=== PATIENT | female | born 1970 | race Caucasian/White ===

== ENCOUNTER 2019-11-28 06:00 | Outpatient (RCR) | payer MEDICARE, MEDICAID, SELFPAY | END 2019-12-14 23:59 | disposition home or self-care (01) | LOC: GPT 06:00 | PROVIDERS: Family Provider Family Medicine; PCP Family Medicine; Referring Provider Nurse Practitioner Family; Visit Provider Nurse Practitioner Family | DX: R53.1 Weakness (principal); Z91.81 History of falling; G90.09 Other idiopathic peripheral autonomic neuropathy | CPT/HCPCS: 97032; 97110; 97162; 97530 ==

== ENCOUNTER 2019-12-15 06:00 | Outpatient (RCR) | payer MEDICARE, MEDICAID, SELFPAY | END 2020-01-14 23:59 | disposition home or self-care (01) | LOC: GPT 06:00 | PROVIDERS: Family Provider Family Medicine; PCP Family Medicine; Referring Provider Nurse Practitioner Family; Visit Provider Nurse Practitioner Family | DX: M79.605 Pain in left leg (principal) | CPT/HCPCS: 97032; 97110; 97112; 97116; 97530; G0283 ==

== ENCOUNTER 2020-01-15 06:00 | Outpatient (RCR) | payer MEDICARE, MEDICAID, SELFPAY | END 2020-02-13 23:59 | disposition home or self-care (01) | LOC: GPT 06:00 | PROVIDERS: Family Provider Family Medicine; PCP Family Medicine; Referring Provider Nurse Practitioner Family; Visit Provider Nurse Practitioner Family | DX: M79.605 Pain in left leg (principal) | CPT/HCPCS: 97032; 97110; 97112; 97164; 97530; G0283 ==

== ENCOUNTER 2020-02-14 06:00 | Outpatient (RCR) | payer MEDICARE, MEDICAID, SELFPAY | END 2020-03-15 23:59 | disposition home or self-care (01) | LOC: GPT 06:00 | PROVIDERS: PCP Family Medicine; Referring Provider Nurse Practitioner Family; Visit Provider Nurse Practitioner Family | DX: M79.605 Pain in left leg (principal); R53.1 Weakness; Z91.81 History of falling; G90.9 Disorder of the autonomic nervous system, unspecified | CPT/HCPCS: 97032; 97110; 97112; 97164; 97530; G0283 ==

== ENCOUNTER 2020-03-16 06:00 | Outpatient (RCR) | payer MEDICARE, MEDICAID, SELFPAY | END 2020-04-14 23:59 | disposition home or self-care (01) | LOC: GPT 06:00 | PROVIDERS: PCP Family Medicine; Referring Provider Nurse Practitioner Family; Visit Provider Nurse Practitioner Family | DX: M79.604 Pain in right leg (principal) | CPT/HCPCS: 97110; 97112; 97530; G0283 ==

== ENCOUNTER → 2023-03-28 11:22 | Outpatient (BNVA) | payer MEDICARE, MEDICAID, SELFPAY | PROVIDERS: PCP Nurse Practitioner; Visit Provider Surgery | DX: K92.1 Melena (principal); Z83.71 Family history of colonic polyps; K21.9 Gastro-esophageal reflux disease without esophagitis | CPT/HCPCS: 99203 ==

== ENCOUNTER 2023-03-30 08:45 | Day surgery (SDC) | payer MEDICARE, MEDICAID, SELFPAY ==
[2023-03-29 09:13] VITALS: BMI 42.6
[2023-03-30 09:05] VITALS: BP 155/76; PULSE 74; RESP 18; TEMP 36.5; O2SAT 95
[2023-03-30] MEDS: sodium chloride 0.9% 1,000 ML 30 ML IV (09:32)
--- NOTE | 2023-03-30 09:57 | ANES.PREANE2 ---
Pre-Anesthetic Assessment Height/Weight: Height 1.68 m Weight 119.748 kg Temp Pulse Resp BP Pulse Ox O2 Del Method 97.7 F 74 18 155/76 95 Room Air 03/30/23 09:05 03/30/23 09:05 03/30/23 09:05 03/30/23 09:05 03/30/23 09:05 03/30/23 09:05 Preop Diagnosis: Hematochezia Operation Date: 03/30/23 10:30 Proposed Procedures p EGD(Not Applicable) [place] [id number] egd [id number] colon, K92.1, Z83.71,(Not Applicable) - Hemant Gold DO Familial anesthetic complications: awareness under anesthesia with back surgery Last intake: Intake Last Liquid Date 03/29/23 Last Liquid Time 20:00 Last Solid Date 03/28/23 Last Solid Time 18:00 Social Tobacco 1/2 ppd pack(s) per day 36 years pack years Exam alert, No oriented x 3, clear to auscultation bilaterally and regular rate & rhythm Airway Submandibular: within normal limits Cervical ROM: within normal limits Mallampati: Class I Dentition: full Pulmonary Asthma and Chronic Obstructive Pulmonary Disease CV/HEM Stable Angina (stress test 2 years prior. Patient does not report any in over a month occurs with stress) and Hypertension Chronic Renal Insufficiency (stage 1) and Urinary Tract Infection Hepatic None reported GI Gastroesophageal Reflux Disease Hematochezia Metabolic Hyperlipidemia, Morbid Obesity and Thyroid Disease Musc/skel cane use prn Neuropsych Anxiety, Deficit (memory issues r/t TBI) and Depression Anesthetic Plan ASA status: 3 Anesthesia: MAC Medications/Allergies Home Medications Medication Instructions Recorded Confirmed Last Taken Type albuterol sulfate 90 mcg/actuation 2 puff inhalation QID 01/06/20 03/29/23 03/28/23 History aerosol inhaler cyclobenzaprine 10 mg tablet 10 mg PO TID 01/06/20 03/29/23 03/28/23 History fluticasone propionate 50 1 spray intranasal BID 01/06/20 03/29/23 03/28/23 History mcg/actuation nasal spray,suspension (Children's Flonase Allergy Relief) gabapentin 300 mg capsule 900 mg PO TID 01/06/20 03/29/23 03/29/23 History hydrochlorothiazide 25 mg tablet 25 mg PO DAILY 01/06/20 03/29/23 03/28/23 History levothyroxine 50 mcg capsule 50 mcg PO DAILY 01/06/20 03/29/23 03/28/23 History melatonin 3 mg capsule 9 mg PO DAILY 01/06/20 03/29/23 03/28/23 History metoprolol succinate 100 mg 100 mg PO DAILY 01/06/20 03/29/23 03/29/23 History capsule sprinkle, ext. release 24 hr mupirocin 2 % topical ointment 1 applic topical TID PRN Rash 01/06/20 03/29/23 Unknown History venlafaxine 150 mg 150 mg PO DAILY 01/06/20 03/29/23 03/29/23 History capsule,extended release 24 hr pantoprazole 40 mg tablet,delayed 40 mg PO BID 6 weeks #84 tabs 03/28/23 03/29/23 03/28/23 Rx release (Protonix) Allergies Allergy/AdvReac Type Severity Reaction Status Date / Time acetaminophen Allergy ALGY-Anaphy Verified 04/13/21 15:35 [From Darvocet-N] laxis codeine Allergy unk Verified 04/13/21 15:36 meperidine [From Demerol] Allergy ALGY-Anaphy Verified 04/13/21 15:35 laxis Penicillins Allergy ADR-Diarrhe Verified 03/29/23 09:17 a propoxyphene Allergy ALGY-Anaphy Verified 04/13/21 15:35 [From Darvocet-N] laxis Sulfa (Sulfonamide Allergy ALGY-Hives Verified 03/30/23 08:58 Antibiotics) Current Medications Generic Name Dose Route Start Last Admin Trade Name Freq PRN Reason Stop Dose Admin Sodium Chloride 1,000 mls @ 30 mls/hr 03/30/23 09:00 03/30/23 09:32 Sodium Chloride 0.9% IV 03/31/23 08:59 30 mls/hr .Q24H HA Administration PFSH Anesthesia Medical History ADHD Atrial fibrillation Essential (primary) hypertension Kidney disease Surgical History H/O splenectomy History of section Total knee replacement status Family History (Updated 03/28/23 @ 11:51 by GABY Romero) Father Colon polyp Cancer Other Diabetes Hypertension Social History Smoking and tobacco status: current some day smoker Alcohol intake: current Alcohol intake frequency: holidays/special occasions only Substance/Drug Use: never Marital status: Single Current occupational status: disabled Data Anesthesia Cardiac Studies: No Data to Display
--- NOTE | 2023-03-30 10:06 | W.PM.OPSUD ---
Surgery/Procedure H&P Update DATE OF PROCEDURE: March 30, 2023 DATE H&P PERFORMED: 03/28/23 H&P UPDATE INFORMATION: I have reviewed H&P completed within last 30 days, I have examined patient prior to procedure and No changes to prior documentation PREOP DIAGNOSIS: Hematochezia PLANNED PROCEDURE: Operation Date: 03/30/23 10:30 Proposed Procedures p EGD(Not Applicable) [place] [id number] egd [id number] colon, K92.1, Z83.71,(Not Applicable) - Hemant Gold DO
[2023-03-30 10:36] VITALS: BP 120/75; PULSE 70; RESP 16; TEMP 36.3; O2SAT 91
[2023-03-30 10:50] VITALS: BP 138/86; PULSE 64; RESP 16; O2SAT 98
--- NOTE | 2023-03-30 15:34 | ANE.PACU2 ---
Inpatient post-anesthesia follow up: Airway intact: Yes Vital signs: Temperature 97.3 F Pulse Rate 64 Respiratory Rate 16 Blood Pressure 138/86 Pulse Oximetry 98 Oxygen Delivery Me thod Room Air Oxygen Flow Rate Fraction of Inspir ed Oxygen Hydration adequate: Yes Nausea and vomiting: No Pain level: 2 Mental status: Baseline
== END 2023-03-30 11:08 | disposition home or self-care (01) ==
PROVIDERS: PCP Nurse Practitioner; Visit Provider Surgery
PROC: 0DJ08ZZ Inspection of Upper Intestinal Tract, Via Natural or Artificial Opening Endoscopic (ICD-10-PCS; CPT 43235; principal; 2023-03-30 10:30)
PROC: 0DJD8ZZ Inspection of Lower Intestinal Tract, Via Natural or Artificial Opening Endoscopic (ICD-10-PCS; CPT 45378; 2023-03-30 10:30)
DX: Z12.11 Encounter for screening for malignant neoplasm of colon (principal); D12.4 Benign neoplasm of descending colon; K29.50 Unspecified chronic gastritis without bleeding; K21.9 Gastro-esophageal reflux disease without esophagitis; Z80.0 Family history of malignant neoplasm of digestive organs; I12.9 Hypertensive chronic kidney disease with stage 1 through stage 4 chronic kidney disease, or unspecified chronic kidney disease; N18.1 Chronic kidney disease, stage 1; E78.5 Hyperlipidemia, unspecified; E66.01 Morbid (severe) obesity due to excess calories; Z68.41 Body mass index [BMI] 40.0-44.9, adult; F17.200 Nicotine dependence, unspecified, uncomplicated; Z88.0 Allergy status to penicillin; Z88.2 Allergy status to sulfonamides
CPT/HCPCS: 43239; 45385; 88305; 88342; J2704; J7030

== ENCOUNTER 2023-04-07 17:18 | Emergency (ER) | payer MEDICARE, MEDICAID, SELFPAY ==
[2023-04-07 17:42] VITALS: PULSE 73; RESP 18; TEMP 36.8; O2SAT 96; BMI 42.6
--- NOTE | 2023-04-07 17:49 | ED_ITS ---
HPI - Wound/Laceration General: Chief Complaint: Wound/Laceration Stated Complaint: right foot lac Time Seen by Provider: 04/07/23 17:42 Source: patient Mode of arrival: ambulatory Limitations: no limitations History of Present Illness: Patient is a 52-year-old female presents to ED today for evaluation and treatment of a laceration to the plantar aspect of her right foot that she sustained after accidentally stepping on a pair of scissors. Tetanus is up-to-date. Onset (ago): hour(s) Extremity Location: Right: foot Place: home Patient tetanus UTD: Yes Context: accidental Associated symptoms: Reports no associated symptoms Treatments prior to arrival: bandage Review of Systems Musc: Reports: extremity pain (R foot) Skin/Breast: Reports: other (laceration R foot) Neuro: Denies: numbness in extremities or sensory changes PFSH ED PFSH: Medical History ADHD Atrial fibrillation Essential (primary) hypertension Kidney disease Surgical History H/O splenectomy History of section Total knee replacement status Family History Father Colon polyp Cancer Other Diabetes Hypertension Social History Smoking and tobacco status: current some day smoker Alcohol intake: current Alcohol intake frequency: holidays/special occasions only Substance/Drug Use: never Marital status: Single Current occupational status: disabled Physical Exam Const: COMMON NORMALS: no acute distress, patient oriented x3, no limitations, alert and well nourished Extremity: GENERAL: Yes normal exam except as noted RIGHT LOWER EXTREMITY: Yes foot & digits OTHER: pt has a 1.25 linear laceration to plantar mid foot Neuro: COMMON NORMALS: patient oriented x3, moves all extremities, no focal motor deficits and no sensory deficits noted SENSORIUM/ORIENTATION: Yes alert Skin: TRAUMA: laceration (R foot) Procedures Laceration Laceration 1: Site: lower extremity Side (If applicable): right Size (cm): 1.25 Description: linear Depth: simple, single layer Local Anesthetic: lidocaine 1% Amount of anesthesia used (mL): 2.0 Pre-repair: wound explored and irrigated extensively Skin layer closed with: nylon Size (cm): 4-0 Number of sutures: 3 Technique: simple, interrupted Course Vital Signs: Vital signs: Vital Signs Temperature 98.3 F 04/07/23 17:42 Pulse Rate 73 04/07/23 17:42 Respiratory Rate 18 04/07/23 17:42 Pulse Oximetry 96 04/07/23 17:42 Oxygen Delivery Me thod Room Air 04/07/23 17:42 MDM - Wound/Laceration Medical Decision Making Wound was copiously irrigated and repaired as documented. Wound care and infection precautions discussed. Patient will be placed on prophylactic antibiotics. Discharge Plan Discharge Patient Disposition: Home Clinical Impression: Laceration of plantar aspect of right foot Qualifiers: Encounter type: initial encounter Qualified Code(s): S91.311A - Laceration without foreign body, right foot, initial encounter Condition: Stable Prescriptions: New cephalexin 500 mg capsule 500 mg PO Q6H 7 Days Qty: 28 0RF No Action albuterol sulfate 90 mcg/actuation HFA aerosol inhaler 2 puff INHALATION QID cyclobenzaprine 10 mg tablet 10 mg PO TID fluticasone propionate [Children's Flonase Allergy Rlf] 50 mcg/actuation spray,suspension 1 spray INTRANASAL BID gabapentin 300 mg capsule 900 mg PO TID hydrochlorothiazide 25 mg tablet 25 mg PO DAILY levothyroxine 50 mcg capsule 50 mcg PO DAILY melatonin 3 mg capsule 9 mg PO DAILY metoprolol succinate 100 mg capsule,sprinkle,ER 24hr 100 mg PO DAILY mupirocin 2 % ointment 1 applic TOPICAL TID PRN (Reason: Rash) venlafaxine 150 mg capsule,extended release 24hr 150 mg PO DAILY pantoprazole [Protonix] 40 mg tablet,delayed release (DR/EC) 40 mg PO BID 42 Days Qty: 84 1RF Discharge Orders: Discharge ED (Routine); Ordered 04/07/23 Ordered By: Zora Palmer Referrals: Silviano Woods FNP [Primary Care Provider] - Patient Instructions: Care For Your Stitches (DC), Laceration (DC) Activity Restrictions/Additional Instructions: Keep wound/laceration clean with warm soap and water twice daily. Monitor for signs of infection such as redness, swelling, increased pain, or drainage. Please seek medical re-evaluation if these occur. If you received sutures today these will need to be removed (unless you were told by the provider that they are absorbable). The provider should have discussed with you the length of time until removal-7 TO 10 DAYS. Coding Level of Care Code ED Pickling Machine Operator for Mikal Francisco
== END 2023-04-07 19:00 | disposition home or self-care (01) ==
PROVIDERS: Emergency Provider Physician Assistant; PCP Nurse Practitioner
DX: S91.311A Laceration without foreign body, right foot, initial encounter (principal); W45.8XXA Other foreign body or object entering through skin, initial encounter; Y93.01 Activity, walking, marching and hiking; Y92.009 Unspecified place in unspecified non-institutional (private) residence as the place of occurrence of the external cause
CPT/HCPCS: 99283

== ENCOUNTER → 2023-04-13 16:36 | Outpatient (BNVA) | payer MEDICARE, MEDICAID, SELFPAY | PROVIDERS: PCP Nurse Practitioner; Visit Provider Surgery | DX: Z09 Encounter for follow-up examination after completed treatment for conditions other than malignant neoplasm (principal); D12.6 Benign neoplasm of colon, unspecified; K29.70 Gastritis, unspecified, without bleeding | CPT/HCPCS: 99212 ==

== ENCOUNTER 2024-01-01 06:00 | Outpatient (RCR) | payer MEDICARE, MEDICAID, SELFPAY | END 2024-01-14 23:59 | disposition home or self-care (01) | LOC: GPT 06:00 | PROVIDERS: PCP Nurse Practitioner; Visit Provider Nurse Practitioner | DX: M54.2 Cervicalgia (principal) | CPT/HCPCS: 97110; 97140; 97162 ==